=== PATIENT | male | born 1940 | race Caucasian/White ===

== ENCOUNTER → 2017-11-08 | Outpatient (CLI) | payer MEDICARE, BC ==
[~2017-11-08] MED LIST: ASPI81TA82 PO; CENTTAB9 PO; CINN500C2 PO; CINN500C7 PO; COQ-100C5 PO; COQ-50CA2 PO; ECASA81 PO; FISH1200 PO; MULTTAB23 PO; RED1CAP4 PO; RED600TA PO; [UNRECOGNIZED DRUG - CODE] PO
[2017-11-08 10:46] LABS: PROTHROMBIN TIME - PATIENT 10.4 SEC (9.8-11.6)
[2017-11-08 10:55] LABS: BICARBONATE 31.4 MEQ/L (21.0-32.0); CALCIUM 9.5 MG/DL (8.5-10.1); CREATININE 1.12 MG/DL (0.60-1.30)
[2017-11-08 11:16] LABS: BILIRUBIN, URINE NEG (NEG); BLOOD, URINE NEG (NEG); GLUCOSE,URINE NEG (NEG); HYALINE CAST, URINE 1 /lpf (RARE); KETONE, URINE NEG (NEG); MUCUS URINE FEW /lpf (OCC); NITRITE,URINE NEG (NEG); PH, URINE 5.5 (5.0-8.5); SQUAMOUS EPITHELIAL CELL URINE <1 /hpf (0-5); URINE COLOR YELLOW (YELLW/STRAW); URINE LEUKOCYTE ESTERASE NEG (NEG)
--- NOTE | 2017-11-08 11:17 | RADRPT ---
EXAM DATE/TIME: 11/08/2017 10:54 [facility] COMPARISON: No previous studies available for comparison. INDICATIONS : Evaluate for pneumonia, pneumothorax or communicable disease. Pre op for left knee surgery. MEDICAL HISTORY : None. SURGICAL HISTORY : None. ENCOUNTER: Initial ACUITY: 1 day PAIN SCORE: 0/10 LOCATION: Bilateral chest FINDINGS: PA and lateral views of the chest demonstrate the lungs to be symmetrically aerated without evidence of mass, infiltrate or effusion. The cardiomediastinal contours are unremarkable. Osseous structure s are intact. CONCLUSION: No acute disease. Jignesh Brown MD on November 08, 2017 at 11:14 Board Certified Radiologist. This report was verified electronically.
--- NOTE | 2017-11-08 21:48 | EKG ---
Date Performed: 11/08/2017 Time Performed: 10:21:24 PTAGE: 77 years EKG: Sinus bradycardia Possible anterior infarct - age undetermined Abnormal ECG PREVIOUS TRACING : 12/20/2012 08.04 Compared to prior tracing no significant change DOCTOR: Royal Fritz Interpretating Date/Time 11/08/2017 21:48:12
== END ==
LOC: CPRE 09:51
PROVIDERS: ATTEND Orthopaedic Surgery
DX: Z01.812 Encounter for preprocedural laboratory examination (principal); Z01.810 Encounter for preprocedural cardiovascular examination; Z01.811 Encounter for preprocedural respiratory examination; S83.242D Other tear of medial meniscus, current injury, left knee, subsequent encounter; R94.31 Abnormal electrocardiogram [ECG] [EKG]
CPT/HCPCS: 36415; 71020; 80048; 81001; 85610; 93005

== ENCOUNTER → 2017-11-23 | Day surgery (SDC) | payer MEDICARE, BC ==
--- NOTE | 2017-11-15 12:19 | MH ---
cc: YARED ALEXANDER M.D. DATE OF ADMISSION 11/23/2017 ADMITTING DIAGNOSIS Medial meniscus tear of the left knee, transient synovitis left knee, varus deformity left knee, pain left knee. HISTORY The patient is a 77 year-old white male who has experienced pain of his left knee of greater than two years duration. He had noted the gradual onset of soreness especially involving the medial aspect of his left knee unrelated to injury or unusual activity. Initially he did not seek any evaluation or treatment and continued to exercise at the gym at least three days per week conforming to a routine program. No additional disposition was completed, but during this past summer while he was vacationing in [place], he was in a kneeling position while retrieving a golf ball and began to note generalized stiffness and soreness about the knee followed by difficulty with ambulatory activities. He modified his exercise routine, but continued to exercise the gym, but had to discontinue his golfing activities. He began to wear an elastic knee support and took a limited amount of Aleve for pain relief. He later underwent orthopedic evaluation with the undersigned physician in August of this past year. At that time, his x-ray studies were without evidence of any significant degenerative change. The patient did demonstrate a varus deformity about the left knee of at least 5-8 degrees magnitude. At that time, he was diagnosed as having transient synovitis with possible internal derangement of his left knee for which he was prescribed Diclofenac and encouraged to utilize his orthotic support on a as needed basis. He was followed on an outpatient basis thereafter during which time he did describe lingering soreness especially about the medial aspect of his left knee. He elected to proceed with further diagnostic evaluation for which an MRI scan was completed the results of which identified an oblique undersurface tear involving the posterior horn of the medial meniscus. The lateral meniscus was unremarkable. The patient remainder symptomatic with pain and soreness about his left knee that influenced his daily routine for which he returned to the office and at that time the findings of his scan were reviewed and treatment options discussed. The pros and cons of continuing with conservative management versus operative intervention that would involve arthroscopic surgery were outlined. Emphasis was made regarding the fact that the decision to proceed with surgery would be left entirely to the patient's discretion. The patient considered his options in this regard and subsequently expressed his desire to proceed accordingly and in compliance with his wishes, he is currently being admitted on order that the above be accomplished. PAST MEDICAL HISTORY Hospitalizations and surgeries have included: 1. Arthroscopic surgery of his right knee. 2. Right inguinal herniorrhaphy. 3. Surgical stabilization of a left wrist fracture. 4. Colonoscopy Medical illnesses: The patient denies active medical illnesses. CURRENT MEDICATIONS His current medications include various [id number] products includin. Co-Q10 200 mg daily 2. Cinnamon 2000 mg daily 3. Fish oil 1200 mg twice a day with Thorndike III 360 mg 4. A multivitamin tablet daily 5. Red yeast rice 600 mg twice a day 6. He also takes an 81 mg aspirin tablet daily. ALLERGIES THERE ARE NO INDICATED DRUG ALLERGIES. REVIEW OF SYSTEMS He does wear glasses for reading purposes and driving. Denies headache, seizure or syncope. No sinus congestion or epistaxis. Auditory acuity intact. Occasional tinnitus. No bleeding gums or dysphagia. Denies chronic cough, shortness of breath, upper respiratory infection, pneumonia or tuberculosis. No angina or heart disease. His appetite is good. Bowel movements are regular. No hepatitis, gallbladder disease, ulcers or hemorrhoids. No urinary tract infection. No kidney stones. No prostate disease. Fracture of the second toe of the right foot in addition to the left wrist fracture as described. No psychiatric illness. His remaining review of systems is unremarkable and noncontributory. FAMILY HISTORY for 48 years, is [id number] in good health. One son and one daughter indicated to be in good health. Family history is positive for breast cancer. 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 He denies active use of tobacco. Ethanol consumption socially in the form of a glass of wine daily. PHYSICAL EXAMINATION Height 6 feet, weight 193 pounds. GENERAL: An alert, oriented and responsive 77-year-old white male who sits quietly upon the examination table with no obvious distress. HEAD, EYES, EARS, NOSE, AND THROAT: Pupils are equally round and reactive to light. Extraocular movements full. Sclerae clear. External nares clear. External auditory canals clear. Dental intact. Mucous membranes pink and moist. Pharynx is clear. NECK: Supple with active range of motion and no appreciable pain. Carotid pulse palpable bilaterally. Trachea midline. Thyroid without enlargement. LUNGS: Clear to auscultation and percussion. BACK: No CVA tenderness. No discomfort throughout the dorsolumbar spine. HEART: Regular rhythm. No murmur or gallop. ABDOMEN: Soft, non-tender. Bowel sounds are present. RECTAL: Per primary care physician. EXTREMITIES: Left knee, no obvious swelling or effusion. There is an obvious varus deformity. Trace medial joint line tenderness. Apprehension and compression sign negative. Slight limitation of mobility at the extreme of flexion without associated crepitation. No collateral ligamentous instability. Martina test and drawer sign negative. Pivot shift and Gauri sign minimally positive for medial compartment pain. Straight leg raising unremarkable at 80 degrees. Satisfactory mobility of the left hip with no associated pain. Independent gait. NEUROLOGIC: Cranial nerves II through XII grossly intact. IMPRESSION Medial meniscus tear of the left knee, transient synovitis left knee, varus deformity left knee, pain left knee. PLAN Arthroscopic surgery left knee, possible arthrotomy. The nature of the planned surgical procedure, the potential complications and risks associated, the expectations of surgery and the consent form have been thoroughly reviewed with the patient prior to his admission to the hospital. Trung has indicated his full understanding regarding all of the above and given consent to proceed with treatment as outlined. Medical evaluation and clearance for surgery will be completed by his primary care physician, Dr. Edson Hale. MD EULA Rogers/GINA /11:32 AM /11:40 AM
[~2017-11-23] VITALS: Ht 182.9 cm; Wt 86.0 kg
[~2017-11-23] MED LIST changes: +ACETAMINOPHEN 1000 MG/100 ML 100 ML IV ONE; -ASPI81TA82 PO; -CENTTAB9 PO; +CHLORHEXIDINE GLUCONATE 2 % 1 PACK (2 CLOTHS) TOPICAL PRN; -CINN500C7 PO; -COQ-100C5 PO; +DEXAMETHASONE SOD PHOS 4 MG/ML VIAL IV ONE; +DO NOT ADM ANY ANTICOAGULANT DRUGS PRN; +FAMOTIDINE 20 MG/2 ML VIAL ONE; +KETOROLAC TROMETHAMINE 30 MG/ML (IVP) VIAL IV PUSH ONE; +LACTATED RINGER'S 1000 ML INJ 1,000 ML IV ONE; +LACTATED RINGER'S 1000 ML IV PRN; +LIDOCAINE HCL 1% PF 5 ML SYRINGE OTHER ONE; +LIDOCAINE HCL 2% 50 ML VIAL ONE; +METOPROLOL TARTRATE 25 MG TAB PO PRN; +MIDAZOLAM HCL 2 MG/2 ML VIAL ONE; +MORPHINE SULFATE 2 MG/ML INJ IM PRN; +ONDANSETRON HCL 4 MG/2 ML VIAL IV PUSH ONE; +POVIDONE IODINE 7.5% SCRUB 118 ML BOTTLE TOPICAL SCH; +PROMETHAZINE INJ 25 MG/ML VIAL IM PRN; +PROPOFOL 200 MG/20 ML AMP IV ONE; -RED600TA PO; +SODIUM CHLORID 0.9% 500 ML IV PRN; +TRIAMCINOLONE ACETONIDE 40 MG/ML VIAL ONE; -[UNRECOGNIZED DRUG - CODE] PO; +ceFAZolin 2 GM PREMIX 50 ML IV SCH; +ePHEDrine/NS 25 MG/5 ML SYRINGE IV ONE
[2017-11-23] MEDS: POVIDONE IODINE 5% (ANTISEPSIS KIT) 4 APPLICATIONS EACH NARE PRN ×2 (07:03→07:15)
[2017-11-23 11:40] VITALS: BP 156/79; PULSE 58; RESP 20; TEMP 98; O2SAT 99
--- NOTE | 2017-11-24 11:29 | MP ---
cc: YARED ALEXANDER DATE OF SURGERY: 11/23/2017 PREOPERATIVE DIAGNOSIS: 1. Medial meniscus tear of the left knee. 2. Transient synovitis, left knee. 3. Varus deformity of the left knee. 4. Pain of the left knee. POSTOPERATIVE DIAGNOSIS: 1. Medial meniscus tear of the left knee. 2. Transient synovitis, left knee. 3. Varus deformity of the left knee. 4. Pain of the left knee. 5. Including synovial plica left knee. OPERATION: Partial medial meniscectomy left knee with resection of synovial plica. SURGEON Heri ANESTHESIA General by LMA FORMAT: Following induction of satisfactory general anesthesia by LMA insertion as completed per the Department of Anesthesia examination of the left knee revealed a satisfactory range of motion with no appreciable ligamentous instability. The extremity proper was positioned in the guest services assistant knee pillai prepped with Betadine solution and draped into a sterile field in the routine manner. Prior to initiation of the actual procedure the standard time-out protocol was completed all parameters were appropriately addressed and confirmed by operating room personnel. Arthroscopic instrumentation was introduced through stab wound utilizing cannula with sharp and blunt trocar. The inflow irrigation by way of a medial suprapatellar portal. The arthroscope through a lateral parapatellar portal and a probe through a medial parapatellar portal. Examination of the suprapatellar pouch revealed a prominent synovial plica extending in a lateral to medial orientation. Minimal degenerative irregularity along the undersurface of the patella. Within the medial compartment a cleavage type tear involving the posterior horn of the medial meniscus was identified. The anterior cruciate ligament was identified and noted to be intact. Examination of the lateral compartment was essentially unremarkable for evidence of internal derangement or appreciable articular irregularity. Attention was redirected to the medial compartment utilizing a biting suction forceps as well as a 3.8-mm saber tooth resector a partial medial meniscectomy was accomplished. Limited debridement of the adjacent articular surface. The shaver was thereafter oriented into the suprapatellar region where the previously identified synovial plica was resected and a subtotal orientation manner. Upon completion of same the joint space was thoroughly lavaged and suctioned dry and intra-articular Kenalog lidocaine injection was completed portal sites were reapproximated with Steri-Strips over which Xeroform gauze and a bulky dry sterile dressing were placed. Anesthesia was discontinued. The patient was thus transferred to a hospital stretcher and returned to recovery room in satisfactory condition having tolerated his operative procedure well. Estimated blood loss was less than 10 cc. MD EULA Rogers/adeline /10:32 AM /11:06 AM
== END | disposition home or self-care (01) ==
LOC: HSDC 05:58
PROVIDERS: ATTEND Orthopaedic Surgery
DX: S83.242A Other tear of medial meniscus, current injury, left knee, initial encounter (principal); M67.362 Transient synovitis, left knee; M21.162 Varus deformity, not elsewhere classified, left knee; M67.52 Plica syndrome, left knee
CPT/HCPCS: 01400; 29881; J0131; J0690; J1100; J1885; J2250; J2405; J3010; J3301; J7120